=== PATIENT | female | born 1975 | race Caucasian/White ===

== ENCOUNTER → 2020-07-07 | Outpatient (CLI) | payer OTHER ==
[~2020-07-07] MED LIST: AMOXICILLIN500 MG PO; DICLOFENAC SODI75 MG PO; ELAVIL 50 MG TA50 MG PO; FLOMAX 0.4 MG0.4 MG PO; GABAPENTIN300 MG PO; IMITREX50 MG PO; LIORESAL TAB 1010 MG PO; MECLIZINE HCL25 MG PO; METHOCARBAMOL500 MG PO; NORCO 5-325 TA1 EACH PO; PAXIL40 MG PO; PRILOSEC OTC20 MG PO; PROBIOTIC1 EAC1 PO; TOPAMAX25 MG PO; TOPAMAX50 MG PO; ZANTAC150 MG PO; ZYRTEC10 M3 PO
[2020-07-07 10:23] LABS: HEMOGLOBIN 14.4 gm/dl (12.3-15.3); RED BLOOD COUNT 4.1 M/UL (4.00-5.10); WHITE BLOOD COUNT 8.1 K/UL (4.5-11.0)
[2020-07-07 10:43] LABS: BUN/CREATININE RATIO 16 (0-10)
[2020-07-08 09:14] LABS: VITAMIN D, 25-HYDROXY 13.4 ng/mL (30.0-100.0)
[2020-07-08 11:14] LABS: RHEUMATOID ARTHRITIS FACTOR <10.0 IU/mL (0.0-13.9)
[2020-07-10 00:07] LABS: CCP ANTIBODIES IGG/IGA 5 units (0-19)
== END ==
LOC: LAB 09:16
PROVIDERS: Nurse Practitioner Family
DX: J30.1 Allergic rhinitis due to pollen (principal); J45.40 Moderate persistent asthma, uncomplicated; H10.45 Other chronic allergic conjunctivitis; R53.83 Other fatigue; D89.9 Disorder involving the immune mechanism, unspecified; M25.50 Pain in unspecified joint; R76.8 Other specified abnormal immunological findings in serum
CPT/HCPCS: 36415; 71046; 80053; 82550; 83520; 84439; 84443; 85025; 85652; 86140; 86200; 86431

== ENCOUNTER → 2020-10-01 | Outpatient (CLI) | payer OTHER | LOC: KOH-I 09-17 14:30 | DX: R51.9 Headache, unspecified (principal) | CPT/HCPCS: 70486 ==

== ENCOUNTER → 2020-12-31 | Outpatient (CLI) | payer OTHER | LOC: US 08:42 | DX: R19.00 Intra-abdominal and pelvic swelling, mass and lump, unspecified site (principal); E04.1 Nontoxic single thyroid nodule; K76.0 Fatty (change of) liver, not elsewhere classified | CPT/HCPCS: 76536; 76700 ==

== ENCOUNTER → 2021-05-12 | Outpatient (CLI) | payer OTHER ==
[~2021-05-12] MED LIST changes: +ABILIFY20 MG PO; +ADDERALL XR 1010 MG PO; +BUSPIRONE HCL30 MG PO; +CELEBREX 100MG100 MG PO; +EMGALITY120 MG/1 M SQ; +FLUTICASONE; +HYDROXYZINE HCL25 MG PO; +LAMICTAL200 MG PO; +OMEPRAZOLE40 MG PO; +PROAIR; +RIZATRIPTAN10 MG PO; +SEROQUEL100 MG PO; +SYMBICORT 16010.2 GM INH; +VIIBRYD40 MG PO
== END ==
LOC: OPSV2 11:30
DX: Z01.812 Encounter for preprocedural laboratory examination (principal); N94.6 Dysmenorrhea, unspecified
CPT/HCPCS: 81001

== ENCOUNTER 2021-05-19 10:04 | Day surgery (SDC) | payer OTHER ==
[~2021-05-19] VITALS: Ht 157.5 cm; Wt 75.8 kg
[2021-05-19 10:36] LABS: HEMOGLOBIN 13.5 gm/dl (12.3-15.3); RED BLOOD COUNT 4.07 M/UL (4.00-5.10); WHITE BLOOD COUNT 8.4 K/UL (4.5-11.0)
[2021-05-19] MEDS ORDERED: ANAPROX DS550 MG PO (16:18)
[2021-05-19] MEDS ORDERED: HYDROCODON-ACE1 EAC2 PO (16:18)
[2021-05-19] MEDS ORDERED: ZOFRAN 4 MG TAB4 MG PO (16:18)
[2021-05-20 03:35] LABS: HEMOGLOBIN 11.1 gm/dl (12.3-15.3)
--- NOTE | 2021-05-20 11:35 | NUR ---
CABAN REMOVED WITH 300CC DARK YELLOW URINE PT TOLERATED WELL.
== END 2021-05-20 13:56 | disposition home or self-care (01) ==
LOC: OR 10:04 → MED SURG 4 17:08 → OR 05-20 13:56
PROVIDERS: Obstetrics & Gynecology
DX: N80.0 Endometriosis of uterus (principal); N92.0 Excessive and frequent menstruation with regular cycle; N94.6 Dysmenorrhea, unspecified; N81.10 Cystocele, unspecified; N39.41 Urge incontinence; N81.82 Incompetence or weakening of pubocervical tissue; J45.909 Unspecified asthma, uncomplicated; J18.9 Pneumonia, unspecified organism; K21.9 Gastro-esophageal reflux disease without esophagitis; K76.0 Fatty (change of) liver, not elsewhere classified; M19.90 Unspecified osteoarthritis, unspecified site; F41.9 Anxiety disorder, unspecified; F32.A Depression, unspecified; F43.10 Post-traumatic stress disorder, unspecified; D64.9 Anemia, unspecified; G43.909 Migraine, unspecified, not intractable, without status migrainosus; Z79.899 Other long term (current) drug therapy; M79.7 Fibromyalgia; Z80.0 Family history of malignant neoplasm of digestive organs; Z87.891 Personal history of nicotine dependence; Z98.51 Tubal ligation status
CPT/HCPCS: 36415; 85014; 85018; 85025; 93005; 94640; 94664; 94760; C1769; J0690; J1100; J1885; J2001; J2250; J2405; J2704; J2710; J2795; J3010; J7120

== ENCOUNTER → 2021-09-13 | Outpatient (CLI) | payer OTHER ==
[~2021-09-13] MED LIST changes: +ANAPROX DS550 MG PO; +HYDROCODON-ACE1 EAC2 PO; +ZOFRAN 4 MG TAB4 MG PO
== END ==
LOC: US 09:15
DX: K76.0 Fatty (change of) liver, not elsewhere classified (principal); K59.00 Constipation, unspecified; Z90.49 Acquired absence of other specified parts of digestive tract
CPT/HCPCS: 36415; 74018; 76705; 80076

== ENCOUNTER → 2021-11-30 | Outpatient (CLI) | payer OTHER | LOC: EXRD 12:55 | DX: E04.1 Nontoxic single thyroid nodule (principal) | CPT/HCPCS: 76536 ==